=== PATIENT | male | born 1940 | race Two or more races ===

== ENCOUNTER 2023-01-07 21:46 | Emergency (ER) | payer BC, OTHER ==
[~2023-01-07] VITALS: Ht 182.9 cm; Wt 81.6 kg
--- NOTE | 2023-01-07 22:10 | NUR ---
Pt is noted alert, responsive as he came from home with Abbrassion to aback of head due to S/P fall at home . Pt care continue awaits MD orders.
--- NOTE | 2023-01-08 00:48 | NUR ---
Pt remain alert, responsive as he is been discharge to home but still in ER bed-2 as await Carb for tansportation.
[2023-01-08 01:59] VITALS: BP 132/85
--- NOTE | 2023-01-08 02:01 | NUR ---
Pt is noted off the ER as Taxi pickup Pt with no s/s off distress or C/P pain with all discharge instruction sgiven.
== END 2023-01-08 02:02 | disposition home or self-care (01) ==
LOC: ER 21:49
DX: S00.01XA Abrasion of scalp, initial encounter (principal); W01.0XXA Fall on same level from slipping, tripping and stumbling without subsequent striking against object, initial encounter; Y93.01 Activity, walking, marching and hiking; Y92.89 Other specified places as the place of occurrence of the external cause; Y99.8 Other external cause status
CPT/HCPCS: 70450-TC

== ENCOUNTER 2023-08-28 13:23 | Emergency (ER) | payer BC ==
[~2023-08-28] VITALS: Ht 182.9 cm; Wt 82.6 kg
[2023-08-28 13:29] VITALS: TEMP 98.1
[2023-08-28] MEDS ORDERED: ACETAMINOPHEN ES 500 MG TABLET PO ONE (14:30)
[2023-08-28] MEDS ORDERED: ACETAMINOPHEN ES 500 MG TABLET ONE (14:33)
[2023-08-28 17:28] VITALS: BP 132/76; O2SAT 99
[2023-08-29] MEDS ORDERED: METF-440 PO (13:09)
[2023-08-29] MEDS ORDERED: ACET-868 PO (13:09)
[2023-08-29] MEDS ORDERED: FAMO20TA8 PO (13:09)
[2023-08-29] MEDS ORDERED: MULT-447 PO (13:09)
[2023-08-29] MEDS ORDERED: MAGN400O6 PO (13:09)
[2023-08-29] MEDS ORDERED: CYAN100020 SL (13:09)
[2023-08-29] MEDS ORDERED: ATOR10TA PO (13:09)
[2023-08-29] MEDS ORDERED: SERT25TA PO (13:09)
[2023-08-29] MEDS ORDERED: ZINC56.713 TP (13:09)
[2023-08-29] MEDS ORDERED: LEVE500T9 PO (13:09)
[2023-08-29] MEDS ORDERED: BENA20TA9 PO (13:09)
[2023-08-29] MEDS ORDERED: AMLO-212 PO (13:09)
[2023-08-29] MEDS ORDERED: POLY17PO4 PO (13:09)
[2023-09-01] MEDS ORDERED: Hydrocodone/Apap 5/325MG PO (08:37)
== END 2023-08-28 17:05 ==
LOC: ER 13:23
DX: R51.9 Headache, unspecified (principal); M25.551 Pain in right hip; M54.50 Low back pain, unspecified; W18.30XA Fall on same level, unspecified, initial encounter; Y93.89 Activity, other specified; Y92.89 Other specified places as the place of occurrence of the external cause; Y99.8 Other external cause status
CPT/HCPCS: 70450-TC; 72125-TC; 72131-TC; 73502

== ENCOUNTER 2023-08-29 11:59 | Inpatient (IN) | payer BC ==
[~2023-08-29] VITALS: Ht 182.9 cm; Wt 63.0 kg
[2023-08-29] MEDS ORDERED: ACETAMINOPHEN 325 MG TABLET PO ONE (13:00)
[2023-08-29] MEDS ORDERED: SERT25TA PO (13:09)
[2023-08-29] MEDS ORDERED: ACET-868 PO (13:09)
[2023-08-29] MEDS ORDERED: FAMO20TA8 PO (13:09)
[2023-08-29] MEDS ORDERED: METF-440 PO (13:09)
[2023-08-29] MEDS ORDERED: MAGN400O6 PO (13:09)
[2023-08-29] MEDS ORDERED: ATOR10TA PO (13:09)
[2023-08-29] MEDS ORDERED: POLY17PO4 PO (13:09)
[2023-08-29] MEDS ORDERED: CYAN100020 SL (13:09)
[2023-08-29] MEDS ORDERED: ZINC56.713 TP (13:09)
[2023-08-29] MEDS ORDERED: LEVE500T9 PO (13:09)
[2023-08-29] MEDS ORDERED: AMLO-212 PO (13:09)
[2023-08-29] MEDS ORDERED: MULT-447 PO (13:09)
[2023-08-29] MEDS ORDERED: BENA20TA9 PO (13:09)
[2023-08-29] MEDS ORDERED: ACETAMINOPHEN 325 MG TABLET ONE (13:10)
[2023-08-29 13:19] LABS: BASOPHILS % (AUTO) 0.5 % (0.0-2.0); EOSINOPHILS # (AUTO) 0.1 K/uL (0.0-0.7); EOSINOPHILS % (AUTO) 0.6 % (0.0-6.0); HEMATOCRIT 37 % (39-51); HEMOGLOBIN 12.4 g/dL (13.5-17.5); LYMPHOCYTES % (AUTO) 11.6 % (20.0-44.0); MEAN CORPUSCULAR HEMOGLOBIN 32 PG (26.0-33.0); MEAN CORPUSCULAR HGB CONC 34 g/dl (31.0-36.0); MEAN CORPUSCULAR VOLUME 95 fL (80-96); MONOCYTES % (AUTO) 11.4 % (2.0-12.0); NEUTROPHILS # (AUTO) 6.8 K/uL (1.8-8.9); NEUTROPHILS % (AUTO) 75.9 % (43.0-81.0); PLATELET COUNT (AUTO) 193 K/uL (150-450); RED BLOOD CELL COUNT(AUTO) 3.86 MIL/uL (4.5-6.0); WHITE BLOOD COUNT (AUTO) 8.9 K/uL (4.3-11.0)
[2023-08-29 13:35] LABS: INR 1.11 (0.91-1.10); PARTIAL THROMBOPLASTIN TIME 34.5 SEC (24.3-34.3); PROTHROMBIN TIME 11.7 SECS (9.2-11.1)
[2023-08-29 14:00] LABS: CALCIUM, SERUM 9.3 mg/dL (8.5-10.1); CREATININE 0.9 mg/dL (0.6-1.3); POTASSIUM 3.9 mmol/L (3.5-5.1)
[2023-08-29] MEDS ORDERED: Z GUARD REMEDY 4 OZ OINT TP PRN (15:30)
[2023-08-29] MEDS ORDERED: MAG HYDROX/AL HYDROX/SIMETH 30 ML UDC PO PRN (15:30)
[2023-08-29] MEDS ORDERED: MAGNESIUM HYDROXIDE 30 ML UDC PO PRN ×2 (15:30)
[2023-08-29] MEDS ORDERED: DEXTROSE 50%-WATER 50 ML DISP.SYRIN IV PRN (15:30)
[2023-08-29] MEDS ORDERED: ACETAMINOPHEN 325 MG TABLET PO PRN (15:30)
[2023-08-29] MEDS ORDERED: ONDANSETRON HCL/PF 4 MG/2 ML VIAL IVP PRN (15:30)
[2023-08-29] MEDS ORDERED: MORPHINE SULFATE INJ 4 MG/ML DISP.SYRIN IV PRN (16:30)
[2023-08-29 17:00] VITALS: BP 145/84; TEMP 98.1; O2SAT 96
[2023-08-29] MEDS: LEVETIRACETAM (250 MG) 250 MG TABLET PO SCH (17:32)
[2023-08-29] MEDS: FAMOTIDINE (20 MG) 20 MG TABLET PO SCH (17:32)
[2023-08-29] MEDS: BENAZEPRIL HCL 20 MG TABLET PO SCH (17:33)
[2023-08-29] MEDS: BLOOD SUGAR DIAGNOSTIC 1 EACH STRIP VI SCH ×2 (17:33→22:32)
[2023-08-29] MEDS: *INSULIN REGULAR(HUMULIN R)HUM 100 UNIT/ML VIAL SQ PRN ×2 (17:33→22:49)
[2023-08-29 20:00] VITALS: BP_SYST 146; BP_DIAS 41; BP_DIAS 81; TEMP 97.7; O2SAT 99
[2023-08-29] MEDS: AMLODIPINE BESYLATE 5 MG TABLET PO SCH (22:02)
[2023-08-30] MEDS: BLOOD SUGAR DIAGNOSTIC 1 EACH STRIP VI SCH ×4 (06:11→21:52)
[2023-08-30] MEDS: INSULIN REGULAR, HUMAN 100 UNIT/ML 3 ML VIAL SQ PRN ×2 (06:43→16:56)
[2023-08-30 06:53] LABS: BASOPHILS % (AUTO) 0.5 % (0.0-2.0); EOSINOPHILS # (AUTO) 0.2 K/uL (0.0-0.7); HEMATOCRIT 35 % (39-51); HEMOGLOBIN 11.9 g/dL (13.5-17.5); LYMPHOCYTES # (AUTO) 1.2 K/uL (0.8-4.8); LYMPHOCYTES % (AUTO) 16.4 % (20.0-44.0); MEAN CORPUSCULAR HEMOGLOBIN 32 PG (26.0-33.0); MEAN CORPUSCULAR HGB CONC 34 g/dl (31.0-36.0); MEAN CORPUSCULAR VOLUME 95 fL (80-96); MONOCYTES # (AUTO) 0.8 K/uL (0.1-1.30); MONOCYTES % (AUTO) 11.1 % (2.0-12.0); NEUTROPHILS # (AUTO) 5.1 K/uL (1.8-8.9); PLATELET COUNT (AUTO) 190 K/uL (150-450); RED BLOOD CELL COUNT(AUTO) 3.71 MIL/uL (4.5-6.0); RED CELL DISTRIBUTION WIDTH 14.5 % (11.5-15.0); WHITE BLOOD COUNT (AUTO) 7.4 K/uL (4.3-11.0)
[2023-08-30 07:09] LABS: CALCIUM, SERUM 9.1 mg/dL (8.5-10.1); CARBON DIOXIDE 26 mmol/L (21-32); CHLORIDE 99 mmol/L (98-107); CREATININE 0.8 mg/dL (0.6-1.3); GLUCOSE 133 mg/dL (74-106); MAGNESIUM 1.8 mg/dL (1.8-2.4); PHOSPHORUS 4.2 mg/dL (2.5-4.9); SODIUM SERUM 135 mmol/L (136-145); UREA NITROGEN, BLOOD 16 mg/dL (7-18)
[2023-08-30 08:00] VITALS: BP 115/75; TEMP 99; O2SAT 97
[2023-08-30] MEDS ORDERED: ANESTHESIA TRAY IN PYXIS 1 EA TRAY MC ONE (08:30)
[2023-08-30] MEDS ORDERED: BUPIVACAINE 0.5 % PF 150 MG/30 ML VIAL ONE (08:31)
[2023-08-30] MEDS ORDERED: FENTANYL PF 250MCG/5ML AMPUL ONE (08:43)
[2023-08-30] MEDS ORDERED: ROCURONIUM BROMIDE 50 MG/5 ML ONE (08:43)
[2023-08-30] MEDS ORDERED: FAMOTIDINE/PF INJ 20 MG/2 ML VIAL IV ONE (08:43)
[2023-08-30] MEDS: FAMOTIDINE (20 MG) 20 MG TABLET PO SCH ×2 (09:00→16:01)
[2023-08-30] MEDS: SERTRALINE HCL 25 MG TABLET PO SCH (09:00)
[2023-08-30] MEDS: LEVETIRACETAM (250 MG) 250 MG TABLET PO SCH ×2 (09:00→16:01)
[2023-08-30] MEDS: BENAZEPRIL HCL 20 MG TABLET PO SCH ×2 (09:00→16:06)
[2023-08-30] MEDS ORDERED: VANCOMYCIN 1 GM VIAL ONE (10:00)
[2023-08-30 11:00] VITALS: BP 134/67; TEMP 97.8; O2SAT 96
[2023-08-30 11:10] VITALS: BP 134/67; TEMP 97.8; O2SAT 96
[2023-08-30 12:16] LABS: IRON, SERUM 25 ug/dl (50-175); TOTAL IRON BINDING CAPACITY 174 ug/dl (250-450)
[2023-08-30 12:22] LABS: CHOLESTEROL 125 mg/dL (<200); FERRITIN 556 ng/mL (8-388); HDL CHOLESTEROL 59 mg/dL (40-60); LDL 48 mg/dL (0-99); THYROID STIMULATING HORMONE 4.524 uIU/mL (0.358-3.74); TRIGLYCERIDES 57 mg/dL (30-150)
[2023-08-30] MEDS ORDERED: MORPHINE SULFATE INJ 2 MG/ML DISP.SYRIN IV PRN (12:30)
[2023-08-30] MEDS ORDERED: HYDROCODONE/APAP 5/325MG TABLET PO PRN (12:30)
[2023-08-30] MEDS: IV D5/0.45 NACL W/20 MEQ KCL 1L IV SCH ×2 (12:52)
[2023-08-30 16:00] VITALS: BP 126/69; TEMP 97.7; O2SAT 98
[2023-08-30] MEDS: ANCEF 1 GM/50 ML D5W IV SCH ×4 (16:01→23:22)
[2023-08-30 20:00] VITALS: BP 111/62; TEMP 98.2; O2SAT 99
[2023-08-30] MEDS: AMLODIPINE BESYLATE 5 MG TABLET PO SCH (21:52)
[2023-08-30] MEDS: *INSULIN REGULAR(HUMULIN R)HUM 100 UNIT/ML VIAL SQ PRN (21:55)
[2023-08-31] MEDS: IV D5/0.45 NACL W/20 MEQ KCL 1L IV SCH ×2 (01:49)
[2023-08-31] MEDS: BLOOD SUGAR DIAGNOSTIC 1 EACH STRIP VI SCH ×4 (06:35→21:28)
[2023-08-31] MEDS: INSULIN REGULAR, HUMAN 100 UNIT/ML 3 ML VIAL SQ PRN ×4 (06:40→21:44)
[2023-08-31] MEDS: ANCEF 1 GM/50 ML D5W IV SCH ×2 (07:36)
[2023-08-31 07:52] LABS: BASOPHILS % (AUTO) 0.3 % (0.0-2.0); EOSINOPHILS % (AUTO) 0.4 % (0.0-6.0); HEMATOCRIT 30 % (39-51); HEMOGLOBIN 10.2 g/dL (13.5-17.5); LYMPHOCYTES % (AUTO) 11.6 % (20.0-44.0); MEAN CORPUSCULAR HEMOGLOBIN 32 PG (26.0-33.0); MEAN CORPUSCULAR HGB CONC 34 g/dl (31.0-36.0); MEAN CORPUSCULAR VOLUME 95 fL (80-96); MONOCYTES # (AUTO) 1.1 K/uL (0.1-1.30); MONOCYTES % (AUTO) 13.3 % (2.0-12.0); NEUTROPHILS # (AUTO) 6.4 K/uL (1.8-8.9); NEUTROPHILS % (AUTO) 74.4 % (43.0-81.0); PLATELET COUNT (AUTO) 184 K/uL (150-450); RED BLOOD CELL COUNT(AUTO) 3.16 MIL/uL (4.5-6.0); RED CELL DISTRIBUTION WIDTH 14.3 % (11.5-15.0); WHITE BLOOD COUNT (AUTO) 8.6 K/uL (4.3-11.0)
[2023-08-31] MEDS: BENAZEPRIL HCL 20 MG TABLET PO SCH ×2 (08:22→16:34)
[2023-08-31] MEDS: FAMOTIDINE (20 MG) 20 MG TABLET PO SCH ×2 (08:22→16:33)
[2023-08-31] MEDS: SERTRALINE HCL 25 MG TABLET PO SCH (08:22)
[2023-08-31] MEDS: LEVETIRACETAM (250 MG) 250 MG TABLET PO SCH ×2 (08:22→16:33)
[2023-08-31 08:31] LABS: ALANINE AMINOTRANSFERASE 14 U/L (12-78); ALBUMIN 2.4 g/dL (3.4-5.0); ALKALINE PHOSPHATASE 169 U/L (46-116); ASPARTATE AMINOTRANSFERASE 17 U/L (15-37); BILIRUBIN,TOTAL 0.5 mg/dL (0.2-1.0); CALCIUM, SERUM 8.8 mg/dL (8.5-10.1); CARBON DIOXIDE 25 mmol/L (21-32); CHLORIDE 101 mmol/L (98-107); CREATININE 0.8 mg/dL (0.6-1.3); GLUCOSE 145 mg/dL (74-106); MAGNESIUM 1.7 mg/dL (1.8-2.4); PHOSPHORUS 3.6 mg/dL (2.5-4.9); POTASSIUM 4.4 mmol/L (3.5-5.1); SODIUM SERUM 132 mmol/L (136-145); TOTAL PROTEIN, SERUM 5.9 g/dL (6.4-8.2); UREA NITROGEN, BLOOD 19 mg/dL (7-18)
[2023-08-31] MEDS ORDERED: MAGNESIUM OXIDE 400 MG TABLET PO ONE (11:00)
[2023-08-31 14:02] VITALS: BP 110/63; TEMP 98.1; O2SAT 99
[2023-08-31] MEDS: SOD FERRIC GLUC 125 MG in IV NS 0.9% 100 ML IV SCH (14:51)
[2023-08-31 16:50] VITALS: BP 123/70; TEMP 98.9; O2SAT 100
[2023-08-31] MEDS: GLUCERNA SHAKE 237 ML CAN PO SCH (17:00)
[2023-08-31 17:36] LABS: URINE SODIUM, RANDOM 46 mmol/l (40-220)
[2023-08-31 20:00] VITALS: BP 131/77; TEMP 98.1; O2SAT 96
[2023-08-31] MEDS: AMLODIPINE BESYLATE 5 MG TABLET PO SCH (21:15)
[2023-09-01] MEDS: BLOOD SUGAR DIAGNOSTIC 1 EACH STRIP VI SCH ×2 (06:35→12:52)
[2023-09-01] MEDS: INSULIN REGULAR, HUMAN 100 UNIT/ML 3 ML VIAL SQ PRN ×2 (06:37→12:53)
[2023-09-01 07:30] LABS: BASOPHILS % (AUTO) 0.3 % (0.0-2.0); EOSINOPHILS # (AUTO) 0.2 K/uL (0.0-0.7); HEMATOCRIT 33 % (39-51); LYMPHOCYTES # (AUTO) 1.1 K/uL (0.8-4.8); LYMPHOCYTES % (AUTO) 14.7 % (20.0-44.0); MEAN CORPUSCULAR HEMOGLOBIN 32 PG (26.0-33.0); MEAN CORPUSCULAR HGB CONC 34 g/dl (31.0-36.0); MEAN CORPUSCULAR VOLUME 95 fL (80-96); MONOCYTES # (AUTO) 0.9 K/uL (0.1-1.30); MONOCYTES % (AUTO) 11.9 % (2.0-12.0); NEUTROPHILS # (AUTO) 5.4 K/uL (1.8-8.9); NEUTROPHILS % (AUTO) 70.1 % (43.0-81.0); PLATELET COUNT (AUTO) 186 K/uL (150-450); RED BLOOD CELL COUNT(AUTO) 3.43 MIL/uL (4.5-6.0); RED CELL DISTRIBUTION WIDTH 14.2 % (11.5-15.0); WHITE BLOOD COUNT (AUTO) 7.7 K/uL (4.3-11.0)
[2023-09-01 07:51] LABS: ALANINE AMINOTRANSFERASE 14 U/L (12-78); ALBUMIN 2.6 g/dL (3.4-5.0); ALKALINE PHOSPHATASE 187 U/L (46-116); ASPARTATE AMINOTRANSFERASE 15 U/L (15-37); BILIRUBIN,TOTAL 0.6 mg/dL (0.2-1.0); CARBON DIOXIDE 28 mmol/L (21-32); CHLORIDE 100 mmol/L (98-107); CREATININE 0.7 mg/dL (0.6-1.3); GLUCOSE 118 mg/dL (74-106); PHOSPHORUS 2.7 mg/dL (2.5-4.9); POTASSIUM 3.9 mmol/L (3.5-5.1); SODIUM SERUM 133 mmol/L (136-145); TOTAL PROTEIN, SERUM 6.4 g/dL (6.4-8.2); UREA NITROGEN, BLOOD 16 mg/dL (7-18)
[2023-09-01 08:05] LABS: THYROID STIMULATING HORMONE 4.137 uIU/mL (0.358-3.74); URIC ACID 3.5 mg/dL (2.6-7.2)
[2023-09-01] MEDS ORDERED: Hydrocodone/Apap 5/325MG PO (08:37)
[2023-09-01] MEDS: GLUCERNA SHAKE 237 ML CAN PO SCH (09:31)
[2023-09-01] MEDS: LEVETIRACETAM (250 MG) 250 MG TABLET PO SCH (09:32)
[2023-09-01 09:33] VITALS: BP 116/73
[2023-09-01] MEDS: FAMOTIDINE (20 MG) 20 MG TABLET PO SCH (09:33)
[2023-09-01] MEDS: BENAZEPRIL HCL 20 MG TABLET PO SCH (09:33)
[2023-09-01] MEDS: SERTRALINE HCL 25 MG TABLET PO SCH (09:33)
[2023-09-01] MEDS: SOD FERRIC GLUC 125 MG in IV NS 0.9% 100 ML IV SCH (14:00)
[2023-09-02 22:04] LABS: OSMOLALITY,URINE 734 mOS/kg (340-1090)
== END 2023-09-01 15:00 | DRG 522 ==
LOC: ER 12:03 → MED 15:33
PROVIDERS: ADMIT Internal Medicine; ATTEND Internal Medicine
PROC: 0SRS0JA Replacement of Left Hip Joint, Femoral Surface with Synthetic Substitute, Uncemented, Open Approach (ICD-10-PCS; principal; 2023-08-30)
DX: S72.012A Unspecified intracapsular fracture of left femur, initial encounter for closed fracture (principal); E87.1 Hypo-osmolality and hyponatremia; E44.0 Moderate protein-calorie malnutrition; G40.909 Epilepsy, unspecified, not intractable, without status epilepticus; I10 Essential (primary) hypertension; E11.65 Type 2 diabetes mellitus with hyperglycemia; E78.5 Hyperlipidemia, unspecified; Z86.011 Personal history of benign neoplasm of the brain; Z98.890 Other specified postprocedural states; R29.6 Repeated falls; R26.9 Unspecified abnormalities of gait and mobility; Z88.1 Allergy status to other antibiotic agents; Z88.8 Allergy status to other drugs, medicaments and biological substances; Z91.018 Allergy to other foods; Z79.84 Long term (current) use of oral hypoglycemic drugs; Z79.899 Other long term (current) drug therapy; W01.0XXA Fall on same level from slipping, tripping and stumbling without subsequent striking against object, initial encounter; Y92.129 Unspecified place in nursing home as the place of occurrence of the external cause
CPT/HCPCS: 36415; 70450-TC; 71045-TC; 73502; 80048-TC; 80053-TC; 80061-TC; 82728-TC; 82962-TC; 83540-TC; 83735-TC; 83935-TC; 84100-TC; 84300-TC; 84439-TC; 84443-TC; 84484-TC; 84550-TC; 85025-TC; 85730-TC; 86850-TC; 87081-TC; 88305-TC; 88311-TC; 92526; 92611-TC; 93307-TC; 97116-TC; 97530-TC; A4217; A4223; A4349; A6253; C1776; G0378; J0690; J1100; J1815; J2405; J2704; J2916; J3010; J3370; J3480; J3490; J7030; J7050; J7060

== ENCOUNTER 2024-04-10 07:00 | Emergency (ER) | payer BC ==
[~2024-04-10] VITALS: Ht 182.9 cm; Wt 74.8 kg
[~2024-04-10 07:00] MED LIST: ACET-868 PO; AMLO-212 PO; ATOR10TA PO; BENA20TA9 PO; CYAN100020 SL; FAMO20TA8 PO; Hydrocodone/Apap 5/325MG PO; LEVE500T9 PO; MAGN400O6 PO; METF-440 PO; MULT-447 PO; POLY17PO4 PO; SERT25TA PO; ZINC56.713 TP
[2024-04-10 09:17] VITALS: BP 116/66; TEMP 98.2; O2SAT 97
== END 2024-04-10 09:18 ==
LOC: ER 07:07
DX: F03.90 Unspecified dementia, unspecified severity, without behavioral disturbance, psychotic disturbance, mood disturbance, and anxiety (principal); G40.909 Epilepsy, unspecified, not intractable, without status epilepticus; I10 Essential (primary) hypertension; E11.9 Type 2 diabetes mellitus without complications; Z85.9 Personal history of malignant neoplasm, unspecified; Z88.8 Allergy status to other drugs, medicaments and biological substances; Z91.018 Allergy to other foods
CPT/HCPCS: 70450-TC

== ENCOUNTER 2024-04-20 16:56 | Emergency (ER) | payer BC ==
[~2024-04-20] VITALS: Ht 182.9 cm; Wt 59.0 kg
[2024-04-20 18:23] LABS: BASOPHILS % (AUTO) 0.2 % (0.0-2.0); CALCIUM, SERUM 8.7 mg/dL (8.5-10.1); CARBON DIOXIDE 28 mmol/L (21-32); CHLORIDE 104 mmol/L (98-107); CREATININE 1.1 mg/dL (0.6-1.3); EOSINOPHILS % (AUTO) 0.1 % (0.0-6.0); GLUCOSE 211 mg/dL (74-106); HEMATOCRIT 33 % (39-51); HEMOGLOBIN 10.8 g/dL (13.5-17.5); LYMPHOCYTES # (AUTO) 0.9 K/uL (0.8-4.8); LYMPHOCYTES % (AUTO) 5.9 % (20.0-44.0); MEAN CORPUSCULAR HEMOGLOBIN 30 PG (26.0-33.0); MEAN CORPUSCULAR HGB CONC 33 g/dl (31.0-36.0); MEAN CORPUSCULAR VOLUME 93 fL (80-96); MONOCYTES # (AUTO) 0.6 K/uL (0.1-1.30); NEUTROPHILS # (AUTO) 14.3 K/uL (1.8-8.9); NEUTROPHILS % (AUTO) 89.8 % (43.0-81.0); PLATELET COUNT (AUTO) 266 K/uL (150-450); POTASSIUM 3.3 mmol/L (3.5-5.1); RED BLOOD CELL COUNT(AUTO) 3.57 MIL/uL (4.5-6.0); RED CELL DISTRIBUTION WIDTH 15.5 % (11.5-15.0); SODIUM SERUM 138 mmol/L (136-145); UREA NITROGEN, BLOOD 27 mg/dL (7-18); WHITE BLOOD COUNT (AUTO) 15.9 K/uL (4.3-11.0)
[2024-04-20 18:34] LABS: ALANINE AMINOTRANSFERASE 81 U/L (12-78); ALBUMIN 1.8 g/dL (3.4-5.0); ALKALINE PHOSPHATASE 735 U/L (46-116); ASPARTATE AMINOTRANSFERASE 62 U/L (15-37); BILIRUBIN,DIRECT 1.1 mg/dL (0.0-0.2); BILIRUBIN,TOTAL 1.4 mg/dL (0.2-1.0); NT-PRO BNP 260 pg/mL (0-125); TOTAL PROTEIN, SERUM 6.2 g/dL (6.4-8.2)
[2024-04-20 22:15] VITALS: BP 119/52; O2SAT 98
== END 2024-04-20 22:16 ==
LOC: ER 17:00
DX: R51.9 Headache, unspecified (principal); I10 Essential (primary) hypertension; G40.909 Epilepsy, unspecified, not intractable, without status epilepticus; I48.91 Unspecified atrial fibrillation; E78.5 Hyperlipidemia, unspecified; K21.9 Gastro-esophageal reflux disease without esophagitis; E11.9 Type 2 diabetes mellitus without complications; Z85.07 Personal history of malignant neoplasm of pancreas; Z91.81 History of falling; Z88.8 Allergy status to other drugs, medicaments and biological substances; Z91.018 Allergy to other foods; Z86.73 Personal history of transient ischemic attack (TIA), and cerebral infarction without residual deficits; W18.39XA Other fall on same level, initial encounter; Y93.89 Activity, other specified; Y92.89 Other specified places as the place of occurrence of the external cause; Y99.8 Other external cause status
CPT/HCPCS: 36415; 70450-TC; 71045-TC; 72125-TC; 72170-TC; 80048-TC; 80076-TC; 82962-TC; 83880; 84484-TC; 85025-TC

== ENCOUNTER 2024-05-25 02:03 | Emergency (ER) | payer BC ==
[~2024-05-25] VITALS: Ht 177.8 cm; Wt 72.6 kg
[2024-05-25 02:43] LABS: BASOPHILS # (AUTO) 0.1 K/uL (0.0-0.2); BASOPHILS % (AUTO) 0.9 % (0.0-2.0); EOSINOPHILS # (AUTO) 0.1 K/uL (0.0-0.7); EOSINOPHILS % (AUTO) 1.9 % (0.0-6.0); HEMATOCRIT 33 % (39-51); HEMOGLOBIN 10.3 g/dL (13.5-17.5); LYMPHOCYTES # (AUTO) 2.1 K/uL (0.8-4.8); LYMPHOCYTES % (AUTO) 26.6 % (20.0-44.0); MEAN CORPUSCULAR HEMOGLOBIN 29 PG (26.0-33.0); MEAN CORPUSCULAR HGB CONC 32 g/dl (31.0-36.0); MEAN CORPUSCULAR VOLUME 91 fL (80-96); MONOCYTES # (AUTO) 0.6 K/uL (0.1-1.30); MONOCYTES % (AUTO) 7.5 % (2.0-12.0); NEUTROPHILS # (AUTO) 4.9 K/uL (1.8-8.9); NEUTROPHILS % (AUTO) 63.1 % (43.0-81.0); PLATELET COUNT (AUTO) 240 K/uL (150-450); RED BLOOD CELL COUNT(AUTO) 3.61 MIL/uL (4.5-6.0); RED CELL DISTRIBUTION WIDTH 16.1 % (11.5-15.0); WHITE BLOOD COUNT (AUTO) 7.8 K/uL (4.3-11.0)
[2024-05-25 02:50] LABS: CALCIUM, SERUM 8.6 mg/dL (8.5-10.1); CARBON DIOXIDE 28 mmol/L (21-32); CHLORIDE 105 mmol/L (98-107); CREATININE 0.7 mg/dL (0.6-1.3); GLUCOSE 115 mg/dL (74-106); POTASSIUM 3.7 mmol/L (3.5-5.1); SODIUM SERUM 135 mmol/L (136-145); UREA NITROGEN, BLOOD 15 mg/dL (7-18)
[2024-05-25 02:59] LABS: LACTIC ACID 1.2 mmol/L (0.4-2.0)
[2024-05-25 03:04] LABS: ALANINE AMINOTRANSFERASE 15 U/L (12-78); ALKALINE PHOSPHATASE 128 U/L (46-116); ASPARTATE AMINOTRANSFERASE 14 U/L (15-37); BILIRUBIN,TOTAL 0.3 mg/dL (0.2-1.0); NT-PRO BNP 383 pg/mL (0-125)
[2024-05-25 04:10] LABS: APPEARANCE,URINE Clear (CLEAR); BILIRUBIN,URINE Negative (NEGATIVE); BLOOD, URINE Negative Ery/uL (NEGATIVE); COLOR,URINE YELLOW (YELLOW); KETONES,URINE Trace mg/dL (NEGATIVE); LEUKOCYTE ESTERASE ,URINE Negative (NEGATIVE); NITRITE, URINE Negative (NEGATIVE); PH,URINE 5.5 (5.0-8.0); PROTEIN,URINE Negative (NEGATIVE); UGLUCOSE Negative (NEGATIVE)
[2024-05-25 04:28] LABS: ADD URINE CULTURE NO; BACTERIA,URINE Rare /HPF (None Seen); RBC,URINE 0-2 /HPF (0-2); SQUAMOUS EPITHELIAL CELL,UR Rare /HPF (None Seen); URIC ACID CRYSTALS,URINE Few /HPF (None Seen); WBC,URINE 0-2 /HPF (0-3)
[2024-05-25 08:15] VITALS: BP 127/72; TEMP 98; O2SAT 96
== END 2024-05-25 08:38 | disposition home or self-care (01) ==
LOC: ER 02:04
DX: R51.9 Headache, unspecified (principal); M54.2 Cervicalgia; R06.02 Shortness of breath; K21.9 Gastro-esophageal reflux disease without esophagitis; E78.5 Hyperlipidemia, unspecified; G40.909 Epilepsy, unspecified, not intractable, without status epilepticus; I10 Essential (primary) hypertension; I48.91 Unspecified atrial fibrillation; E11.9 Type 2 diabetes mellitus without complications; Z85.07 Personal history of malignant neoplasm of pancreas; Z87.39 Personal history of other diseases of the musculoskeletal system and connective tissue; Z91.81 History of falling; Z87.19 Personal history of other diseases of the digestive system; Z86.73 Personal history of transient ischemic attack (TIA), and cerebral infarction without residual deficits; Z98.890 Other specified postprocedural states; Z88.8 Allergy status to other drugs, medicaments and biological substances; Z91.018 Allergy to other foods; W06.XXXA Fall from bed, initial encounter; Y93.89 Activity, other specified; Y92.89 Other specified places as the place of occurrence of the external cause; Y99.8 Other external cause status
CPT/HCPCS: 36415; 70450-TC; 71045-TC; 72125-TC; 80053-TC; 81001; 83605-TC; 83880; 84484-TC; 85025-TC

== ENCOUNTER 2024-06-06 01:12 | Emergency (ER) | payer BC ==
[~2024-06-06] VITALS: Ht 177.8 cm; Wt 68.0 kg
--- NOTE | 2024-06-06 01:29 | NUR ---
[facility] FOR UNWITNESSED FALL, NO KO , +NOSE BLEED
--- NOTE | 2024-06-06 01:51 | NUR ---
BLOOD SENT TO LAB
[2024-06-06 01:57] LABS: BASOPHILS % (AUTO) 0.6 % (0.0-2.0); EOSINOPHILS # (AUTO) 0.2 K/uL (0.0-0.7); EOSINOPHILS % (AUTO) 3.5 % (0.0-6.0); HEMATOCRIT 32 % (39-51); HEMOGLOBIN 10.3 g/dL (13.5-17.5); LYMPHOCYTES # (AUTO) 1.6 K/uL (0.8-4.8); LYMPHOCYTES % (AUTO) 27.3 % (20.0-44.0); MEAN CORPUSCULAR HEMOGLOBIN 29 PG (26.0-33.0); MEAN CORPUSCULAR HGB CONC 33 g/dl (31.0-36.0); MEAN CORPUSCULAR VOLUME 89 fL (80-96); MONOCYTES # (AUTO) 0.5 K/uL (0.1-1.30); MONOCYTES % (AUTO) 9.3 % (2.0-12.0); NEUTROPHILS # (AUTO) 3.5 K/uL (1.8-8.9); NEUTROPHILS % (AUTO) 59.3 % (43.0-81.0); PLATELET COUNT (AUTO) 259 K/uL (150-450); RED BLOOD CELL COUNT(AUTO) 3.53 MIL/uL (4.5-6.0); RED CELL DISTRIBUTION WIDTH 16.3 % (11.5-15.0); WHITE BLOOD COUNT (AUTO) 5.9 K/uL (4.3-11.0)
--- NOTE | 2024-06-06 02:07 | NUR ---
PT TAKEN TO CT
[2024-06-06 02:27] LABS: CALCIUM, SERUM 9.2 mg/dL (8.5-10.1); CARBON DIOXIDE 31 mmol/L (21-32); CHLORIDE 106 mmol/L (98-107); CREATININE 0.8 mg/dL (0.6-1.3); GLUCOSE 121 mg/dL (74-106); POTASSIUM 4.2 mmol/L (3.5-5.1); SODIUM SERUM 143 mmol/L (136-145); UREA NITROGEN, BLOOD 26 mg/dL (7-18)
[2024-06-06 02:28] LABS: ALANINE AMINOTRANSFERASE 9 U/L (12-78); ALBUMIN 2.4 g/dL (3.4-5.0); ALKALINE PHOSPHATASE 142 U/L (46-116); ASPARTATE AMINOTRANSFERASE 10 U/L (15-37); BILIRUBIN,DIRECT 0.2 mg/dL (0.0-0.2); BILIRUBIN,TOTAL 0.3 mg/dL (0.2-1.0); TOTAL PROTEIN, SERUM 6.6 g/dL (6.4-8.2)
--- NOTE | 2024-06-06 02:30 | NUR ---
PT BACK TO FROM CT.
--- NOTE | 2024-06-06 04:30 | NUR ---
Patient is resting comfortably in bed with eyes closed. Easily aroused.pt vs wnl,hooked up to monitor,will continue to moniotr.
[2024-06-06 05:48] VITALS: TEMP 98
--- NOTE | 2024-06-06 06:44 | NUR ---
Bird jimenez in EDM - 06/06/24 at 0645 by ROSETTA Patient is resting comfortably in bed with eyes closed. Easily aroused.pt vs wnl,hooked up to monitor,will continue to moniotr.
[2024-06-06 08:00] VITALS: BP 112/60; O2SAT 99
--- NOTE | 2024-06-06 10:52 | NUR ---
[facility] ETA 10 min
--- NOTE | 2024-06-06 11:05 | NUR ---
patient picked up by [facility] ambulance going back to [facility] correction in no distress. Son is at bedside and aware of the transfer.
== END 2024-06-06 11:05 ==
LOC: ER 01:20
DX: S00.81XA Abrasion of other part of head, initial encounter (principal); R04.0 Epistaxis; G40.909 Epilepsy, unspecified, not intractable, without status epilepticus; I10 Essential (primary) hypertension; E78.5 Hyperlipidemia, unspecified; E11.9 Type 2 diabetes mellitus without complications; K21.9 Gastro-esophageal reflux disease without esophagitis; I48.91 Unspecified atrial fibrillation; Z86.73 Personal history of transient ischemic attack (TIA), and cerebral infarction without residual deficits; Z85.841 Personal history of malignant neoplasm of brain; Z85.07 Personal history of malignant neoplasm of pancreas; Z91.81 History of falling; Z87.39 Personal history of other diseases of the musculoskeletal system and connective tissue; Z88.8 Allergy status to other drugs, medicaments and biological substances; Z91.018 Allergy to other foods; W18.39XA Other fall on same level, initial encounter; Y93.89 Activity, other specified; Y92.89 Other specified places as the place of occurrence of the external cause; Y99.8 Other external cause status
CPT/HCPCS: 36415; 70450-TC; 70486-TC; 71045-TC; 72125-TC; 72170-TC; 80048-TC; 80076-TC; 84484-TC; 85025-TC

== ENCOUNTER 2025-01-10 22:33 | Inpatient (IN) | payer BC ==
[~2025-01-10] VITALS: Ht 188 cm; Wt 86.2 kg
[2025-01-10] MEDS ORDERED: ACETAMINOPHEN 325 MG TABLET ONE (23:29)
[2025-01-10] MEDS: ACETAMINOPHEN 325 MG TABLET PO ONE (23:31)
[2025-01-11 04:30] LABS: BASOPHILS % (AUTO) 0.5 % (0.0-2.0); EOSINOPHILS # (AUTO) 0.1 K/uL (0.0-0.7); EOSINOPHILS % (AUTO) 0.8 % (0.0-6.0); HEMATOCRIT 35 % (39-51); HEMOGLOBIN 11.5 g/dL (13.5-17.5); LYMPHOCYTES # (AUTO) 0.7 K/uL (0.8-4.8); LYMPHOCYTES % (AUTO) 8.8 % (20.0-44.0); MEAN CORPUSCULAR HEMOGLOBIN 28 PG (26.0-33.0); MEAN CORPUSCULAR HGB CONC 33 g/dl (31.0-36.0); MEAN CORPUSCULAR VOLUME 85 fL (80-96); MONOCYTES # (AUTO) 0.8 K/uL (0.1-1.30); MONOCYTES % (AUTO) 9.9 % (2.0-12.0); NEUTROPHILS # (AUTO) 6.7 K/uL (1.8-8.9); PLATELET COUNT (AUTO) 136 K/uL (150-450); RED BLOOD CELL COUNT(AUTO) 4.14 MIL/uL (4.5-6.0); RED CELL DISTRIBUTION WIDTH 15.9 % (11.5-15.0); WHITE BLOOD COUNT (AUTO) 8.4 K/uL (4.3-11.0)
[2025-01-11 04:40] LABS: CALCIUM, SERUM 8.9 mg/dL (8.5-10.1); CREATININE 1.3 mg/dL (0.6-1.3); POTASSIUM 4.2 mmol/L (3.5-5.1)
[2025-01-11 04:45] LABS: INR 1.05 (0.91-1.10); PARTIAL THROMBOPLASTIN TIME 25.9 SEC (24.3-34.3); PROTHROMBIN TIME 11.1 SECS (9.2-11.1)
[2025-01-11 04:46] LABS: ALBUMIN 3.2 g/dL (3.4-5.0); BILIRUBIN,TOTAL 0.5 mg/dL (0.2-1.0); TOTAL PROTEIN, SERUM 6.5 g/dL (6.4-8.2)
[2025-01-11] MEDS ORDERED: INSULIN REGULAR, HUMAN 100 UNIT/ML 3 ML VIAL SQ PRN (05:00)
[2025-01-11] MEDS ORDERED: ONDANSETRON HCL/PF 4 MG/2 ML VIAL IVP PRN (05:00)
[2025-01-11] MEDS ORDERED: ACETAMINOPHEN 325 MG TABLET PO PRN ×2 (05:00→16:30)
[2025-01-11] MEDS ORDERED: DEXTROSE 50%-WATER 50 ML DISP.SYRIN IV PRN ×2 (05:00→16:30)
[2025-01-11] MEDS ORDERED: MAG HYDROX/AL HYDROX/SIMETH 30 ML UDC PO PRN (05:00)
[2025-01-11] MEDS ORDERED: Z GUARD REMEDY 4 OZ OINT TP PRN (05:00)
[2025-01-11 05:13] LABS: THYROID STIMULATING HORMONE 3.43 uIU/mL (0.358-3.74)
[2025-01-11] MEDS: BLOOD SUGAR DIAGNOSTIC 1 EACH STRIP IN SCH (07:30)
[2025-01-11 08:00] VITALS: BP 127/78; TEMP 97.7; O2SAT 90
[2025-01-11 08:10] VITALS: BP 127/78; TEMP 97.7; O2SAT 93
[2025-01-11] MEDS ORDERED: ACET325T53 PO (09:01)
[2025-01-11] MEDS ORDERED: PANT20TA17 PO (09:01)
[2025-01-11] MEDS ORDERED: DIPH25TA23 PO (09:01)
[2025-01-11] MEDS ORDERED: AMIN30LI66 PO (09:01)
[2025-01-11] MEDS ORDERED: HYDR-4303 PO (09:01)
[2025-01-11] MEDS ORDERED: POLY17PO4 PO (09:01)
[2025-01-11] MEDS ORDERED: GUAI100S9 PO (09:01)
[2025-01-11] MEDS: LEVETIRACETAM (500MG) 500 MG in IV NS 0.9% 100 ML IV SCH (09:22)
[2025-01-11] MEDS: PANTOPRAZOLE 40 MG VIAL IV SCH (09:23)
[2025-01-11 16:00] VITALS: BP 153/80; TEMP 99.3; O2SAT 94
[2025-01-11] MEDS ORDERED: diphenhydrAMINE HCL 25 MG CAPSULE PO PRN (16:30)
[2025-01-11] MEDS ORDERED: GUAIFENESIN 300 MG/15 ML UDC PO PRN (16:30)
[2025-01-11] MEDS ORDERED: MAGNESIUM HYDROXIDE 30 ML UDC PO PRN (16:30)
[2025-01-11] MEDS ORDERED: HYDROCODONE/APAP 5/325MG TABLET PO PRN (16:30)
[2025-01-11] MEDS ORDERED: POLYETHYLENE GLYCOL 3350 17 GM POWD.PACK PO PRN (16:30)
[2025-01-11 17:28] LABS: APPEARANCE,URINE CLEAR (CLEAR); BILIRUBIN,URINE NEGATIVE (NEGATIVE); BLOOD, URINE NEGATIVE Ery/uL (NEGATIVE); COLOR,URINE YELLOW (YELLOW); KETONES,URINE NEGATIVE (NEGATIVE); LEUKOCYTE ESTERASE ,URINE NEGATIVE (NEGATIVE); NITRITE, URINE NEGATIVE (NEGATIVE); PH,URINE 6.5 (5.0-8.0); PROTEIN,URINE TRACE mg/dl (NEGATIVE); UGLUCOSE NEGATIVE (NEGATIVE)
[2025-01-11] MEDS: BLOOD SUGAR DIAGNOSTIC 1 EACH STRIP VI SCH (17:28)
[2025-01-11] MEDS: PROSOURCE / PROSTAT (PYXIS) 30 ML UDC PO SCH (17:28)
[2025-01-11 17:30] LABS: ADD URINE CULTURE NO; BACTERIA,URINE Rare /HPF (None Seen); CALCIUM OXALATE CRYSTALS,UR Rare /HPF (None Seen); RBC,URINE 0-2 /HPF (0-2); SQUAMOUS EPITHELIAL CELL,UR None Seen /HPF (None Seen); WBC,URINE 0-2 /HPF (0-3)
[2025-01-11 18:04] LABS: EOSINOPHIL,URINE None Seen
[2025-01-11 20:00] VITALS: BP 161/88; TEMP 99; O2SAT 93
[2025-01-11] MEDS: *INSULIN REGULAR(HUMULIN R)HUM 100 UNIT/ML VIAL SQ PRN (22:10)
[2025-01-12] MEDS: INSULIN REGULAR, HUMAN 100 UNIT/ML 3 ML VIAL SQ PRN (06:42)
[2025-01-12 07:01] LABS: BASOPHILS % (AUTO) 0.4 % (0.0-2.0); EOSINOPHILS # (AUTO) 0.4 K/uL (0.0-0.7); EOSINOPHILS % (AUTO) 6.4 % (0.0-6.0); HEMATOCRIT 39 % (39-51); HEMOGLOBIN 12.6 g/dL (13.5-17.5); LYMPHOCYTES # (AUTO) 1.3 K/uL (0.8-4.8); LYMPHOCYTES % (AUTO) 20.6 % (20.0-44.0); MEAN CORPUSCULAR HEMOGLOBIN 28 PG (26.0-33.0); MEAN CORPUSCULAR HGB CONC 33 g/dl (31.0-36.0); MEAN CORPUSCULAR VOLUME 86 fL (80-96); MONOCYTES # (AUTO) 0.7 K/uL (0.1-1.30); MONOCYTES % (AUTO) 10.6 % (2.0-12.0); NEUTROPHILS # (AUTO) 3.9 K/uL (1.8-8.9); PLATELET COUNT (AUTO) 120 K/uL (150-450); RED BLOOD CELL COUNT(AUTO) 4.53 MIL/uL (4.5-6.0); RED CELL DISTRIBUTION WIDTH 15.8 % (11.5-15.0); WHITE BLOOD COUNT (AUTO) 6.3 K/uL (4.3-11.0)
[2025-01-12 07:25] LABS: ALBUMIN 3.1 g/dL (3.4-5.0); CALCIUM, SERUM 8.9 mg/dL (8.5-10.1); MAGNESIUM 1.9 mg/dL (1.8-2.4); PHOSPHORUS 3.5 mg/dL (2.5-4.9); TOTAL PROTEIN, SERUM 6.6 g/dL (6.4-8.2)
[2025-01-12 08:00] VITALS: BP 108/59; TEMP 98.2; O2SAT 95
[2025-01-12] MEDS ORDERED: ANESTHESIA TRAY IN PYXIS 1 EA TRAY MC ONE (15:22)
[2025-01-12] MEDS ORDERED: TRANEXAMIC ACID 1,000 MG/10 ML VIAL ONE (15:22)
[2025-01-12] MEDS ORDERED: BUPIVACAINE 0.25% 75 MG/30 ML VIAL ONE (15:22)
[2025-01-12] MEDS ORDERED: POLYMYXIN B SULFATE 500,000 UNITS ONE (15:22)
[2025-01-12 16:00] VITALS: BP 145/93; TEMP 98.6; O2SAT 94
[2025-01-12] MEDS ORDERED: FENTANYL PF 100MCG/2ML AMPUL ONE (16:02)
[2025-01-12] MEDS ORDERED: ROCURONIUM BROMIDE 50 MG/5 ML ONE (16:02)
[2025-01-12] MEDS ORDERED: ROPIVACAINE HCL 0.5% 5 MG/ML 30ML VIAL ONE (16:02)
[2025-01-12] MEDS ORDERED: VANCOMYCIN 1 GM VIAL ONE (17:15)
[2025-01-12 19:38] LABS: HEMOGLOBIN 12.5 g/dL (13.5-17.5)
[2025-01-12 20:00] VITALS: BP 145/68; TEMP 98.2; O2SAT 97
[2025-01-13] MEDS: CEFAZOLIN 2 GM in IV D5W 100 ML IV SCH (01:02)
[2025-01-13] MEDS: MORPHINE SULFATE INJ 2 MG/ML DISP.SYRIN IV PRN (03:45)
[2025-01-13 07:11] LABS: PTH, INTACT 13 pg/mL (15-65)
[2025-01-13 07:16] LABS: BASOPHILS % (AUTO) 0.1 % (0.0-2.0); EOSINOPHILS # (AUTO) 0.3 K/uL (0.0-0.7); EOSINOPHILS % (AUTO) 3.7 % (0.0-6.0); HEMATOCRIT 35 % (39-51); HEMOGLOBIN 11.6 g/dL (13.5-17.5); LYMPHOCYTES # (AUTO) 0.9 K/uL (0.8-4.8); MEAN CORPUSCULAR HEMOGLOBIN 28 PG (26.0-33.0); MEAN CORPUSCULAR HGB CONC 33 g/dl (31.0-36.0); MEAN CORPUSCULAR VOLUME 86 fL (80-96); MONOCYTES # (AUTO) 0.9 K/uL (0.1-1.30); MONOCYTES % (AUTO) 10.6 % (2.0-12.0); NEUTROPHILS % (AUTO) 74.6 % (43.0-81.0); PLATELET COUNT (AUTO) 127 K/uL (150-450); RED BLOOD CELL COUNT(AUTO) 4.12 MIL/uL (4.5-6.0); RED CELL DISTRIBUTION WIDTH 15.9 % (11.5-15.0); WHITE BLOOD COUNT (AUTO) 8.1 K/uL (4.3-11.0)
[2025-01-13 07:45] LABS: CARBON DIOXIDE 22 mmol/L (21-32); CHLORIDE 107 mmol/L (98-107); CREATININE 1.4 mg/dL (0.6-1.3); GLUCOSE 158 mg/dL (74-106); MAGNESIUM 1.7 mg/dL (1.8-2.4); PHOSPHORUS 3.7 mg/dL (2.5-4.9); POTASSIUM 4.1 mmol/L (3.5-5.1); SODIUM SERUM 139 mmol/L (136-145); UREA NITROGEN, BLOOD 20 mg/dL (7-18)
[2025-01-13 08:33] LABS: CALCIUM, SERUM 8.1 mg/dL (8.5-10.1)
[2025-01-13] MEDS: Magnesium 1GM/D5W 100ML PREMIX 100 ML IV SCH (10:22)
[2025-01-13 20:00] VITALS: BP 124/63; TEMP 98.6; O2SAT 94
[2025-01-13] MEDS: ENOXAPARIN SODIUM 40 MG/0.4 ML DISP.SYRIN SQ SCH (20:34)
[2025-01-14 07:15] LABS: CALCIUM, SERUM 8.2 mg/dL (8.5-10.1); CREATININE 1.2 mg/dL (0.6-1.3); MAGNESIUM 2.2 mg/dL (1.8-2.4); PHOSPHORUS 2.8 mg/dL (2.5-4.9)
[2025-01-14 07:21] LABS: BASOPHILS % (AUTO) 0.1 % (0.0-2.0); EOSINOPHILS # (AUTO) 0.3 K/uL (0.0-0.7); EOSINOPHILS % (AUTO) 3.7 % (0.0-6.0); HEMATOCRIT 32 % (39-51); HEMOGLOBIN 10.6 g/dL (13.5-17.5); LYMPHOCYTES # (AUTO) 0.8 K/uL (0.8-4.8); LYMPHOCYTES % (AUTO) 10.1 % (20.0-44.0); MEAN CORPUSCULAR HEMOGLOBIN 28 PG (26.0-33.0); MEAN CORPUSCULAR HGB CONC 33 g/dl (31.0-36.0); MEAN CORPUSCULAR VOLUME 85 fL (80-96); MONOCYTES # (AUTO) 0.8 K/uL (0.1-1.30); MONOCYTES % (AUTO) 11.3 % (2.0-12.0); NEUTROPHILS # (AUTO) 5.5 K/uL (1.8-8.9); NEUTROPHILS % (AUTO) 74.8 % (43.0-81.0); PLATELET COUNT (AUTO) 122 K/uL (150-450); RED BLOOD CELL COUNT(AUTO) 3.76 MIL/uL (4.5-6.0); RED CELL DISTRIBUTION WIDTH 15.4 % (11.5-15.0); WHITE BLOOD COUNT (AUTO) 7.4 K/uL (4.3-11.0)
[2025-01-14 08:31] VITALS: BP 126/63; TEMP 98.4; O2SAT 94
[2025-01-14] MEDS: LEVETIRACETAM SOL (5 ML) 100 MG/ML UDC PO SCH (09:57)
[2025-01-14] MEDS ORDERED: ENOX40DI SQ (10:14)
[2025-01-14] MEDS ORDERED: LEVE100S PO (10:14)
[2025-01-14 15:56] VITALS: BP 124/66; TEMP 98.8; O2SAT 93
== END 2025-01-14 19:50 | DRG 521 ==
LOC: ER 22:34 → MED 01-11 05:50
PROVIDERS: ADMIT Student in an Organized Health Care Education/Training Program; ATTEND Student in an Organized Health Care Education/Training Program
PROC: 0SRR0J9 Replacement of Right Hip Joint, Femoral Surface with Synthetic Substitute, Cemented, Open Approach (ICD-10-PCS; principal; 2025-01-12 16:30)
DX: S72.011A Unspecified intracapsular fracture of right femur, initial encounter for closed fracture (principal); N17.0 Acute kidney failure with tubular necrosis; E44.1 Mild protein-calorie malnutrition; C25.9 Malignant neoplasm of pancreas, unspecified; G40.909 Epilepsy, unspecified, not intractable, without status epilepticus; D69.6 Thrombocytopenia, unspecified; E86.0 Dehydration; W06.XXXA Fall from bed, initial encounter; Y92.099 Unspecified place in other non-institutional residence as the place of occurrence of the external cause; F01.50 Vascular dementia, unspecified severity, without behavioral disturbance, psychotic disturbance, mood disturbance, and anxiety; K21.9 Gastro-esophageal reflux disease without esophagitis; M81.0 Age-related osteoporosis without current pathological fracture; M89.8X9 Other specified disorders of bone, unspecified site; Z88.1 Allergy status to other antibiotic agents; Z91.018 Allergy to other foods; Z86.73 Personal history of transient ischemic attack (TIA), and cerebral infarction without residual deficits; Z85.841 Personal history of malignant neoplasm of brain; Z85.07 Personal history of malignant neoplasm of pancreas; Z91.81 History of falling; E78.5 Hyperlipidemia, unspecified; K44.9 Diaphragmatic hernia without obstruction or gangrene; Z79.84 Long term (current) use of oral hypoglycemic drugs; Z96.642 Presence of left artificial hip joint; Z79.899 Other long term (current) drug therapy; Z98.890 Other specified postprocedural states; I50.9 Heart failure, unspecified; I11.0 Hypertensive heart disease with heart failure; D64.9 Anemia, unspecified; I48.91 Unspecified atrial fibrillation; Z78.1 Physical restraint status; E86.9 Volume depletion, unspecified; R73.03 Prediabetes
CPT/HCPCS: 36415; 71045-TC; 72170-TC; 73502; 73552; 73700-TC; 80048-TC; 80053-TC; 80061-TC; 81001; 82550-TC; 82553; 82962-TC; 83735-TC; 83970; 84100-TC; 84155; 84165; 84443-TC; 84484-TC; 85025-TC; 85027-TC; 85610-TC; 85730-TC; 86850-TC; 87081-TC; 93307-TC; 97110-TC; 97112-TC; 97116-TC; 97530-TC; A4217; A6209; C1713; C1776; G0378; J0690; J1650; J1815; J1953; J2270; J2405; J2470; J2704; J2795; J3010; J3370; J3475; J3490; J7030; J7060; L1830

== ENCOUNTER 2025-05-07 07:59 | Emergency (ER) | payer BC ==
[~2025-05-07] VITALS: Ht 182.9 cm; Wt 83.5 kg
[~2025-05-07 07:59] MED LIST changes: -ACET-868 PO; +ACET325T53 PO; +AMIN30LI66 PO; -AMLO-212 PO; -ATOR10TA PO; -BENA20TA9 PO; -CYAN100020 SL; +DIPH25TA23 PO; +ENOX40DI SQ; -FAMO20TA8 PO; +GUAI100S9 PO; +HYDR-4303 PO; -Hydrocodone/Apap 5/325MG PO; +LEVE100S PO; -LEVE500T9 PO; -METF-440 PO; -MULT-447 PO; +PANT20TA17 PO; -SERT25TA PO; -ZINC56.713 TP
[2025-05-07 08:27] LABS: PLATELET COUNT (AUTO) 164 K/uL (150-450); RED BLOOD CELL COUNT(AUTO) 4.51 MIL/uL (4.5-6.0); RED CELL DISTRIBUTION WIDTH 18.2 % (11.5-15.0); WHITE BLOOD COUNT (AUTO) 5.8 K/uL (4.3-11.0)
[2025-05-07 08:35] LABS: CALCIUM, SERUM 9.0 mg/dL (8.5-10.1); CREATININE 1.0 mg/dL (0.6-1.3); SODIUM SERUM 142 mmol/L (136-145); UREA NITROGEN, BLOOD 24 mg/dL (7-18)
[2025-05-07 08:48] LABS: ASPARTATE AMINOTRANSFERASE 13 U/L (15-37); NT-PRO BNP 95 pg/mL (0-125); TOTAL PROTEIN, SERUM 6.8 g/dL (6.4-8.2)
[2025-05-07 12:15] VITALS: BP 142/65; TEMP 98.3; O2SAT 98
== END 2025-05-07 12:16 | disposition home or self-care (01) ==
LOC: ER 08:04
DX: R07.9 Chest pain, unspecified (principal); R53.1 Weakness; I10 Essential (primary) hypertension; E11.9 Type 2 diabetes mellitus without complications; R06.02 Shortness of breath; F03.90 Unspecified dementia, unspecified severity, without behavioral disturbance, psychotic disturbance, mood disturbance, and anxiety; G40.909 Epilepsy, unspecified, not intractable, without status epilepticus; I48.91 Unspecified atrial fibrillation; Z79.899 Other long term (current) drug therapy; Z85.07 Personal history of malignant neoplasm of pancreas; Z86.73 Personal history of transient ischemic attack (TIA), and cerebral infarction without residual deficits; Z88.1 Allergy status to other antibiotic agents
CPT/HCPCS: 36415; 71045-TC; 80048-TC; 80076-TC; 83690-TC; 83880; 84484-TC; 85025-TC